=== PATIENT | female | born 1945 ===

== ENCOUNTER 2017-03-27 12:04 | Inpatient (IN) | payer MEDICAID ==
[2017-03-27 12:04] VITALS: BMI 21.3
[2017-03-27] MEDS ORDERED: Sodium Chloride 0.9% 1,000 ML IV STA ×2 (14:18→15:21)
--- NOTE | 2017-03-27 14:29 | ED PDOC ---
HPI: General Adult Time Seen by Provider: 03/27/17 13:15 Chief Complaint (Nursing): Dizziness/Lightheaded Chief Complaint (Provider): Dizziness/Lightheaded History Per: Patient History/Exam Limitations: no limitations Onset/Duration Of Symptoms: Days (x2) Current Symptoms Are (Timing): Still Present Additional Complaint(s): Ruy Mendez is a 72 year old female, with a past medical history of hypertension , diabetes, anxiety and depression, who presents to the emergency department complaining of dizziness onset for 2 days associated with headaches. She states she feels nervous to go home. Patient reports that she ran out of lorazepam a week ago. She denies further medical complaints. PMD: Tristen Campbell Past Medical History Reviewed: Historical Data, Nursing Documentation, Vital Signs Vital Signs: Last Vital Signs Temp 98.5 F 03/27/17 12:18 Pulse 84 03/27/17 12:18 Resp 18 03/27/17 12:18 BP 155/63 H 03/27/17 12:18 Pulse Ox 100 03/27/17 16:41 - Medical History PMH: Anxiety, Depression, Diabetes, HTN - Surgical History Surgical History: Cholecystectomy - Family History Family History: States: Unknown Family Hx - Immunization History Hx Tetanus Toxoid Vaccination: No Hx Influenza Vaccination: No Hx Pneumococcal Vaccination: No - Home Medications Home Medications: Ambulatory Orders Medication Instructions Recorded Acetaminophen [Tylenol 325mg tab] 2 tab PO Q6 #50 tab 03/07/17 Ibuprofen [Motrin Tab] 400 mg PO Q8 #30 tab 03/07/17 metFORMIN [glucOPHAGE] 500 mg PO TID 03/07/17 - Allergies Allergies/Adverse Reactions: Allergies Allergy/AdvReac Type Severity Reaction Status Date / Time No Known Allergies Allergy Verified 03/07/17 12:05 Review of Systems ROS Statement: Except As Marked, All Systems Reviewed And Found Negative Neurological: Positive for: Headache, Dizziness Psych: Positive for: Anxiety Physical Exam - Reviewed Nursing Documentation Reviewed: Yes Vital Signs Reviewed: Yes - Physical Exam Appears: Positive for: Well, Non-toxic, No Acute Distress Head Exam: Positive for: ATRAUMATIC, NORMAL INSPECTION, NORMOCEPHALIC Skin: Positive for: Normal Color, Warm, Dry Eye Exam: Positive for: EOMI, Normal appearance, PERRL ENT: Positive for: Normal ENT Inspection Neck: Positive for: Normal, Painless ROM, Supple Cardiovascular/Chest: Positive for: Regular Rate, Rhythm Respiratory: Positive for: CNT, Normal Breath Sounds Gastrointestinal/Abdominal: Positive for: Normal Exam, Bowel Sounds, Soft Neurologic/Psych: Positive for: Alert, Oriented, Mood/Affect (anxious) - Laboratory Results Result Diagrams: 03/27/17 14:35 03/27/17 14:35 - ECG Interpretation Of ECG: NSR @ 70, no ST-T changes. O2 Sat by Pulse Oximetry: 100 (RA) Pulse Ox Interpretation: Normal Medical Decision Making Medical Decision Making: Initial impression: Hyperglycemia and Anxiety Initial plan: --Head w/o Contrast [CT] --EKG --Comp Metabolic Panel --Troponin I --Urine Dipstick --CBC w/ diff --PTT --Patient --NS IV 1,000 mls/hr --Glucose, Blood, POC --Urinalysis --reevaluation FINDINGS: HEMORRHAGE: No intracranial hemorrhage. BRAIN: No mass effect or edema. Mild diffuse age-appropriate cerebral atrophy. Mild periventricular white matter lucency consistent with chronic microvascular ischemic change. No evidence of acute infarct. VENTRICLES: Unremarkable. No hydrocephalus. CALVARIUM: Unremarkable. PARANASAL SINUSES: Unremarkable as visualized. No significant inflammatory changes. MASTOID AIR CELLS: Unremarkable as visualized. No inflammatory changes. OTHER FINDINGS: None. IMPRESSION: No intracranial mass, hemorrhage or evidence of acute infarct. Age-appropriate involutional changes. Time: 16:30 Medically cleared for psych evaluation Scribe Attestation: Documented by Zain Olguin, acting as a scribe for Tiffany Horton MD. Provider Scribe Attestation: All medical record entries made by the Scribe were at my direction and personally dictated by me. I have reviewed the chart and agree that the record accurately reflects my personal performance of the history, physical exam, medical decision making, and the department course for this patient. I have also personally directed, reviewed, and agree with the discharge instructions and disposition. ED OBSERVATION Time of observation admission: 16:10 - Observation admission statement Patient is being placed in observation because:: Hyperglycemia and headache - Goals of Observation Goals of observation are:: Alleviation of symptoms and result of ED workup Disposition - Clinical Impression Clinical Impression: Anxiety, Hyperglycemia - Patient ED Disposition Is Patient to be Admitted: Yes - Disposition Disposition Time: 17:02 Condition: STABLE Forms: trueEX ([place]) - Pt Status Changed To: Hospital Disposition Of: Inpatient - Admit Certification Admit to Inpatient:: After my assessment, the patient will require hospitalization for at least two midnights. This is because of the severity of symptoms shown, intensity of services needed, and/or the medical risk in this patient being treated as an outpatient. - POA Present On Arrival: Poor Glycemic Control
[2017-03-27 14:37] LABS: BASO % 0.5 % (0.0-2.0); EOS % 0.5 % (0.0-4.0); HEMOGLOBIN 11.5 g/dL (12.0-16.0); MEAN CELL VOLUME 82.4 fl (81.0-99.0); MEAN CORPUSCULAR HEMOGLOBIN 27.2 pg (27.0-31.0); MEAN PLATELET VOLUME 10.5 fl (7.2-11.7); MONO # 0.6 K/uL (0.0-0.8); MONO % 7.7 % (0.0-10.0); NEUT % 52.3 % (50.0-75.0); NRBC % 0.2 % (0.0-0.0); RBC 4.25 Mil/uL (3.80-5.20); WHITE BLOOD COUNT 7.7 K/uL (4.8-10.8)
[2017-03-27 14:50] LABS: ALBUMIN 4.2 g/dL (3.5-5.0); ALT/SGPT 48 U/L (9-52); AST/SGOT 32 U/L (14-36); BLOOD UREA NITROGEN 12 mg/dl (7-17); CALCIUM 9.3 mg/dL (8.4-10.2); GFR AFRICAN-AMERICAN > 60; GFR NON-AFRICAN AMERICAN > 60
[2017-03-27 15:01] LABS: PROTHROMBIN TIME 10.7 Seconds (9.8-13.1)
[2017-03-27] MEDS ORDERED: Insulin Regular 100 units/ml IV STA (15:21)
[2017-03-27 15:51] LABS: SQUAMOUS EPITHIAL < 1 /hpf (0-5); URINE BILIRUBIN NEGATIVE (NEGATIVE); URINE BLOOD NEGATIVE (NEGATIVE); URINE CLARITY CLEAR (Clear); URINE COLOR YELLOW (YELLOW); URINE GLUCOSE (UA) >=500 mg/dL (Normal); URINE LEUKOCYTE ESTERASE NEG Leu/uL (Negative); URINE NITRATE NEGATIVE (NEGATIVE); URINE PROTEIN NEGATIVE (NEGATIVE); URINE UROBILINOGEN 0.2-1.0 mg/dL (0.2-1.0)
--- NOTE | 2017-03-27 16:29 | CT ---
PROCEDURE: CT HEAD WITHOUT CONTRAST. HISTORY: [facility] COMPARISON: None available. TECHNIQUE: Axial computed tomography images were obtained through the head/brain without intravenous contrast. Radiation dose: Total exam DLP = 1552.79 mGy-cm. This CT exam was performed using one or more of the following dose reduction techniques: Automated exposure control, adjustment of the mA and/or kV according to patient size, and/or use of iterative reconstruction technique. FINDINGS: HEMORRHAGE: No intracranial hemorrhage. BRAIN: No mass effect or edema. Mild diffuse age-appropriate cerebral atrophy. Mild periventricular white matter lucency consistent with chronic microvascular ischemic change. No evidence of acute infarct. VENTRICLES: Unremarkable. No hydrocephalus. CALVARIUM: Unremarkable. PARANASAL SINUSES: Unremarkable as visualized. No significant inflammatory changes. MASTOID AIR CELLS: Unremarkable as visualized. No inflammatory changes. OTHER FINDINGS: None. IMPRESSION: No intracranial mass, hemorrhage or evidence of acute infarct. Age-appropriate involutional changes.
--- NOTE | 2017-03-27 17:28 | RAD ---
HISTORY: Medical clearance COMPARISON: 05/22/2016. FINDINGS: LUNGS: No active pulmonary disease. PLEURA: No significant pleural effusion identified, no pneumothorax apparent. CARDIOVASCULAR: No radiographic findings to suggest acute or significant cardiovascular disease. OSSEOUS STRUCTURES: No significant abnormalities. VISUALIZED UPPER ABDOMEN: Normal. OTHER FINDINGS: None. IMPRESSION: No active disease. No significant interval change compared to the prior examination(s).
[2017-03-27 18:57] VITALS: O2SAT 98
[2017-03-27] MEDS ORDERED: Alum-Mag Hydrox-Simethicone Susp (30 mL) PO PRN (23:46)
[2017-03-27] MEDS ORDERED: Bismuth Subsalicylate 262 mg/15 ml Sus (240 ml) PO PRN (23:46)
[2017-03-27] MEDS ORDERED: Magnesium Hydroxide Susp 30 ml UD PO PRN (23:46)
[2017-03-28 08:35] LABS: T4 7.88 ug/dl (5.5-11.0)
[2017-03-28 08:52] LABS: FERRITIN 21.8 ng/mL
[2017-03-28] MEDS: Insulin Regular 100 units/ml SC SCH ×4 (09:02→21:13)
[2017-03-28 12:44] LABS: FOLATE 13.2 ng/mL
--- NOTE | 2017-03-28 13:03 | PCM.PSYCH ---
Initial Psychiatric Evaluation - Initial Psychiatric Evaluation Type of Admission: Voluntary Legal Status: Capacity Chief Complaint (in patient's own words): "I have bad anxiety" Patient's Reaction to Hospitalization: HPI: 72 year old single female, presented to the ED w/ complaints of dizziness and worsening depression and anxiety. She reported falling down two weeks ago and since then she has not been outside. She reported since the fall she has been seeing white lights across her face. She reported no audio or tactile hallucinations. She stated she has ran out of her anxiety medication and has not been able to sleep. She has been feeling anxious and she does not like that feeling. 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 Patient reported that she is gets afraid at times when she watches TV and see violence. Patient was exhibiting some paranoia in the ER as evidenced by her asking, "Why are there cameras everywhere?" or "Why does the nurse keep coming in here?" Patient stated that she is not "crazy". She has never had any therapy or seen a psychiatrist. She stated she never tried to commit suicide or homicide. She denied any ideations, gestures, or plan. Patient was orientated times two she was not aware of the year. Patient was guarded at times as she was paranoid. She was a little unkempt but she stated since her fall she had not been doing much. She had a low level of energy as a result. Patient's speech was normal but at times low when she spoke of being scared. Patient was preoccupied with her anxiety and other times with her fears. Patient stated that she does want to be admitted at this time to get stable. MHx: DM (poorly controlled), HTN SHx: From [facility], denies drug/etoh abuse. Lives alone. ALL: NKDA PPHx: Denies past psychiatric history, reports that her PMD prescribes Ativan 2 mg PO BID (refuses to let filing writer talk to PMD), denies h/o psychiatric admissions. FHx: Denies family h/o mental illness Current Medications: Active Medications Generic Name Dose Route Start Last Admin Trade Name Freq PRN Reason Stop Dose Admin Acetaminophen 650 mg 03/27/17 23:46 03/28/17 00:08 Tylenol 325mg Tab PO 650 mg Q4 PRN Administration Pain, moderate (4-7) Al Hydrox/Mg Hydrox/Simethicone 30 ml 03/27/17 23:46 Maalox Plus 30 Ml PO Q4 PRN Dyspepsia Bismuth Subsalicylate 524 mg 03/27/17 23:46 Pepto-Bismol PO Q4 PRN Diarrhea Enalapril Maleate 5 mg 03/28/17 11:30 03/28/17 12:02 Vasotec PO 5 mg DAILY MANNY Administration Insulin Human Regular 10 units 03/28/17 23:53 Humulin R SC 03/28/17 23:54 ONCE ONE Insulin Human Regular 0 units 03/28/17 07:30 03/28/17 11:38 Humulin R SC Not Given ACHS MANNY Protocol Lorazepam 0.5 mg 03/27/17 23:46 Ativan PO 04/10/17 23:47 HS PRN Insomnia Lorazepam 0.5 mg 03/27/17 23:46 03/28/17 12:14 Ativan PO 04/10/17 23:47 0.5 mg Q6 PRN Administration Anixety/Agitation Magnesium Hydroxide 30 ml 03/27/17 23:46 Milk Of Magnesia PO HS PRN Constipation Metformin HCl 850 mg 03/28/17 11:42 03/28/17 12:01 Glucophage PO 850 mg BID MANNY Administration Past Psychiatric History - Past Psychiatric History Previous Treatment History: None Pertinent Medical Hx (Current Medical&Sleep Prob, Allergies): Allergies Allergy/AdvReac Type Severity Reaction Status Date / Time No Known Allergies Allergy Verified 03/07/17 12:05 metFORMIN [glucOPHAGE] 500 mg PO TID 03/07/17 Empagliflozin [Jardiance] 25 mg PO DAILY 03/27/17 Enalapril Maleate [Vasotec] 5 mg PO DAILY 03/27/17 Glimepiride [amaRYL] 4 mg PO DAILY 03/27/17 LORazepam [Ativan] 2 mg PO BID 03/27/17 Omeprazole [Omeprazole] 20 mg PO DAILY 03/27/17 Pioglitazone [Actos] 15 mg PO DAILY 03/27/17 Sertraline [Zoloft] 25 mg PO DAILY 03/27/17 Review of Systems - Psychiatric Psychiatric: As Per HPI, Anhedonia, Anxiety, Depression, Difficulty Concentrating, Panic Attacks, Paranoia Mental Status Examination - Personal Presentation Personal Presentation: Looks stated age - Affect Affect: Constricted - Motor Activity Motor Activity: Calm - Reliability in Providing Information Reliability in Providing Information: Other (Poor for unclear reasons) - Speech Speech: Organized - Mood Mood: Depressed, Anxious - Formal Thought Process Formal Thought Process: Paranoia - Obsessions/Compulsions Obsessions: No Compulsions: No - Cognitive Functions Orientation: Person, Place, Situation, Time Sensorium: Alert Estimate of Intelligence: Average Judgement: Intact, as evidence by: Insight regarding need for hospitalization Memory: Recent intact, as evidence by: Ability to recall events of the day - Risk Risk: Diminished functioning - Strength & Assets Inventory Strength & Assets Inventory: Family support, Cooperative DSM 5 DX - DSM 5 DSM 5 Diagnosis: Generalized Anxiety Disorder, Mood Disorder unspecified, r/o Psychosis unspecified - Recommended/Plan of Treatment Treatment Recommendations and Plan of Treatment: Generalized Anxiety Disorder, Mood Disorder unspecified, r/o Psychosis unspecified -Admit to psychiatry -Start Zoloft 50 mg PO Daily -Ativan 0.5 mg PO Q6 hr PRN anxiety or benzo w/drawal -Risperdal 0.5 mg PO HS -Psychology consult: r/o dementia -Disposition planning -Individual and group therapy Projected ELOS: 3-7 days Discharge Plan and Discharge Criteria: Discharge when psychiatrically stable - Smoking Cessation Smoking Cessation Initiated: No
--- NOTE | 2017-03-28 15:22 | CP.PCM.CON ---
History of Present Illness - History of Present Illness History of Present Illness: 72 yo female with history of DM2, HTN and Depression admitted in [facility] because of increasing Depression and Anxiety. Review of Systems - Review of Systems All systems: reviewed and no additional remarkable complaints except (aside from those mentioned above, 12 point system review were negative by me) Past Patient History - Tetanus Immunizations Tetanus Immunization: Unknown - Past Medical History & Family History Past Medical History?: Yes Past Family History: Reviewed and not pertinent - Past Social History Smoking Status: Never Smoked Alcohol: None Drugs: Denies - CARDIAC Hx Cardiac Disorders: No Hx Hypertension: Yes - PULMONARY Hx Respiratory Disorders: No Hx Tuberculosis: No - NEUROLOGICAL HX Cerebrovascular Accident: No Hx Seizures: No - HEENT Hx HEENT Problems: No - RENAL Hx Chronic Kidney Disease: No - ENDOCRINE/METABOLIC Hx Diabetes Mellitus Type 2: Yes - HEMATOLOGICAL/ONCOLOGICAL Hx Cancer: No Hx Human Immunodeficiency Virus (HIV): No - INTEGUMENTARY Hx Dermatological Problems: No - MUSCULOSKELETAL/RHEUMATOLOGICAL Hx Falls: Yes - GASTROINTESTINAL Hx Gastrointestinal Disorders: No - GENITOURINARY/GYNECOLOGICAL Hx Sexually Transmitted Disorders: No - PSYCHIATRIC Hx Anxiety: Yes Hx Substance Use: No - SURGICAL HISTORY Hx Cholecystectomy: Yes - ANESTHESIA Hx Anesthesia: Yes Hx Anesthesia Reactions: No Meds Allergies/Adverse Reactions: Allergies Allergy/AdvReac Type Severity Reaction Status Date / Time No Known Allergies Allergy Verified 03/07/17 12:05 - Medications Medications: Current Medications Acetaminophen (Tylenol 325mg Tab) 650 mg PO Q4 PRN PRN Reason: Pain, moderate (4-7) Last Admin: 03/28/17 00:08 Dose: 650 mg Al Hydrox/Mg Hydrox/Simethicone (Maalox Plus 30 Ml) 30 ml PO Q4 PRN PRN Reason: Dyspepsia Bismuth Subsalicylate (Pepto-Bismol) 524 mg PO Q4 PRN PRN Reason: Diarrhea Enalapril Maleate (Vasotec) 5 mg PO DAILY [facility] Last Admin: 03/28/17 12:02 Dose: 5 mg Insulin Human Regular (Humulin R) 10 units SC ONCE ONE Stop: 03/28/17 23:54 Insulin Human Regular (Humulin R) 0 units SC ACHS MANNY PRN Reason: Protocol Last Admin: 03/28/17 11:38 Dose: Not Given Lorazepam (Ativan) 0.5 mg PO HS PRN PRN Reason: Insomnia Stop: 04/10/17 23:47 Lorazepam (Ativan) 0.5 mg PO Q6 PRN PRN Reason: Anixety/Agitation Stop: 04/10/17 23:47 Last Admin: 03/28/17 12:14 Dose: 0.5 mg Magnesium Hydroxide (Milk Of Magnesia) 30 ml PO HS PRN PRN Reason: Constipation Metformin HCl (Glucophage) 850 mg PO BID MANNY Last Admin: 03/28/17 12:01 Dose: 850 mg Risperidone (Risperdal Tab) 0.5 mg PO HS MANNY Sertraline HCl (Zoloft) 50 mg PO DAILY [facility] Physical Exam - Constitutional Appears: No Acute Distress - Head Exam Head Exam: ATRAUMATIC - Eye Exam Eye Exam: absent: Scleral icterus - ENT Exam ENT Exam: Mucous Membranes Moist - Neck Exam Neck exam: Negative for: Meningismus - Respiratory Exam Respiratory Exam: absent: Rhonchi, Wheezes, Respiratory Distress - Cardiovascular Exam Cardiovascular Exam: REGULAR RHYTHM, +S1, +S2 - GI/Abdominal Exam GI & Abdominal Exam: Soft. absent: Tenderness - Rectal Exam Rectal Exam: Deferred - Extremities Exam Extremities exam: Negative for: pedal edema - Back Exam Back exam: NORMAL INSPECTION - Neurological Exam Neurological exam: Alert, Oriented x3 - Psychiatric Exam Psychiatric exam: Normal Affect - Skin Skin Exam: Dry, Intact Results - Vital Signs Recent Vital Signs: Last Vital Signs Temp 98 F 03/27/17 18:56 Pulse 79 03/27/17 18:56 Resp 20 03/28/17 00:00 BP 142/68 03/27/17 18:56 Pulse Ox 98 03/27/17 18:56 - Labs Result Diagrams: 03/27/17 14:35 03/27/17 14:35 Labs: Laboratory Results - last 24 hr 03/27/17 03/27/17 03/27/17 17:03 22:01 23:47 POC Glucose (mg/dL) 118 H 371 H 418 H* Hemoglobin A1c Ferritin Triglycerides Cholesterol LDL Cholesterol Direct HDL Cholesterol Vitamin B12 Folate Free T4 Thyroxine (T4) TSH 3rd Generation 03/28/17 03/28/17 03/28/17 05:39 07:00 07:00 POC Glucose (mg/dL) 279 H Hemoglobin A1c 14.5 H Ferritin 21.8 Triglycerides 70 Cholesterol 162 LDL Cholesterol Direct 63 HDL Cholesterol 71 H Vitamin B12 617 Folate 13.2 Free T4 Thyroxine (T4) 7.88 TSH 3rd Generation 6.11 H 03/28/17 03/28/17 07:00 11:13 POC Glucose (mg/dL) 416 H* Hemoglobin A1c Ferritin Triglycerides Cholesterol LDL Cholesterol Direct HDL Cholesterol Vitamin B12 Folate Free T4 1.00 Thyroxine (T4) TSH 3rd Generation Assessment & Plan (1) Anxiety Status: Acute Comment: psyche is managing (2) DM2 (diabetes mellitus, type 2) Status: Chronic Comment: diabetic diet. Metformin 850mg PO BID. HgA1C, BMP in am. accuchek ACHS with low Lipsro coverage (3) HTN (hypertension) Status: Chronic Comment: BP stable. Vasotec 5mg PO daily
[2017-03-28] MEDS: Insulin Lispro (humaLOG) 100 Units/ml Inj SC SCH ×2 (16:30→21:13)
--- NOTE | 2017-03-28 18:00 | CARD ---
APPROVED REPORT EKG Measurement Heart [id number] <Conclusion> Poor data quality, interpretation may be adversely affected Normal sinus rhythm Normal ECG
[2017-03-28] MEDS ORDERED: Insulin Regular 100 units/ml SC ONE (23:53)
[2017-03-29 07:21] LABS: BLOOD UREA NITROGEN 20 mg/dl (7-17); CALCIUM 9.1 mg/dL (8.4-10.2); GFR AFRICAN-AMERICAN > 60; GFR NON-AFRICAN AMERICAN > 60
[2017-03-29] MEDS: Insulin Lispro (humaLOG) 100 Units/ml Inj SC SCH ×4 (08:22→21:25)
--- NOTE | 2017-03-29 13:20 | PCM.PYCHPN ---
Psychiatric Progress Note - Psychiatric Progress Note Patient seen today, length of contact: Patient evaluated, case discussed with team, chart reviewed, 35 min Patient Chief Complaint: "I'm okay" Problems Identified/Issues Discussed: Patient is requesting to be discharged from the hospital. She reported that her primary compliant today is anxiety. Psychoeducation provided to the patient and the patient's son that the patient has very poorly controlled diabetes the risks associated with not taking the appropriate medications to control her diabetes and the penitentiary consequences. Gas Leak Inspector also informed the patient and her son that is can be dangerous for a woman her age to take Ativan 2 mg PO BID due to increased risks of falls and confusion. Gas Leak Inspector discussed although the patient has been on this medication for several years, hand sign writer recommends lowering the dosage and eventually stopping this medication. 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 Risperdal stopped as the patient has not be expressing paranoid ideation and her primary issue seems to be depression/anxiety. Medication Change: Yes (Stop Risperdal) Medical Record Reviewed: Yes Mental Status Examination - Cognitive Function Orientation: Person, Place, Situation, Time Association: WNL - Mood Mood: Anxious - Affect Affect: Constricted - Formal Thought Process Formal Thought Process: No Impairment Psychotic Thoughts and Behaviors: NO AH/VH/paranoia/delusions - Suicidal Ideation Suicidal Ideation: No - Homicidal Ideation Homicidal Ideation: No Goal/Treatment Plan - Goal/Treatment Plan Need for Continued Stay: Remain at risks for inpatient hospitalization, Severe depression anxiety Progress Toward Problem(s) and Goals/Treatment Plan: Generalized Anxiety Disorder, Mood Disorder unspecified, r/o Psychosis unspecified -Continue Zoloft 50 mg PO Daily -Ativan 0.5 mg PO Q12 hr PRN anxiety or benzo w/drawal -Stop Risperdal 0.5 mg PO HS -Psychology consult: r/o dementia -Disposition planning- patient and her son are in agreement with discharge tomorrow -Individual and group therapy -R/b/se of treatment discussed with patient and her son; psychoeducation provided on diabetes Estimated Date of D/C: 03/30/17
[2017-03-30 06:03] VITALS: BP 141/77; PULSE 89; RESP 18; TEMP 97.5
[2017-03-30] MEDS: Insulin Lispro (humaLOG) 100 Units/ml Inj SC SCH ×2 (09:02→12:24)
--- NOTE | 2017-03-30 10:03 | PCM.PYCHDC ---
Mental Status Examination - Mental Status Examination Orientation: Person, Place, Situation Memory: Impaired Mood: Neutral Affect: Broad Speech: Appropriate Attention: Poor Concentration: Poor Association: Loose Fund of Knowledge: Poor Formal Thought Process: Loosening of associations Description of patient's judgement and insight: Limited insight/judgment due to cognitive impairments Psychotic Thoughts and Behaviors: NO AH/VH/paranoia/delusions Suicidal Ideation: No Current Homicidal Ideation?: No Discharge Summary - Discharge Note Reason for Hospitalization: HPI: 72 year old single female, presented to the ED w/ complaints of dizziness and worsening depression and anxiety. She reported falling down two weeks ago and since then she has not been outside. She reported since the fall she has been seeing white lights across her face. She reported no audio or tactile hallucinations. She stated she has ran out of her anxiety medication and has not been able to sleep. She has been feeling anxious and she does not like that feeling. 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 Patient reported that she is gets afraid at times when she watches TV and see violence. Patient was exhibiting some paranoia in the ER as evidenced by her asking, "Why are there cameras everywhere?" or "Why does the nurse keep coming in here?" Patient stated that she is not "crazy". She has never had any therapy or seen a psychiatrist. She stated she never tried to commit suicide or homicide. She denied any ideations, gestures, or plan. Patient was orientated times two she was not aware of the year. Patient was guarded at times as she was paranoid. She was a little unkempt but she stated since her fall she had not been doing much. She had a low level of energy as a result. Patient's speech was normal but at times low when she spoke of being scared. Patient was preoccupied with her anxiety and other times with her fears. Patient stated that she does want to be admitted at this time to get stable. MHx: DM (poorly controlled), HTN SHx: From [facility], denies drug/etoh abuse. Lives alone. ALL: NKDA PPHx: Denies past psychiatric history, reports that her PMD prescribes Ativan 2 mg PO BID (refuses to let underwriter mortgage loan talk to PMD), denies h/o psychiatric admissions. x: Denies family h/o mental illness Laboratory Data: Abnormal Lab Results 03/29/17 03/29/17 03/29/17 06:25 10:48 12:31 POC Glucose (mg/dL) 323 H 240 H Hemoglobin A1c 14.4 H 03/29/17 03/29/17 03/30/17 16:00 21:10 05:45 POC Glucose (mg/dL) 309 H 111 H 267 H Hemoglobin A1c Consultations:: List each consultation separately and include: 1. Reason for request. 2. Findings. 3. Follow-up Consultations: Medicine consult Psychology consult: Pt is a 72 year old female admitted to the geropsych unit and referred to the underwriter mortgage loan for evaluation. On the DRS, pt scored in the Deficient Rang on all tasks. pt scored in the Deficient Range on Attention, Construction , Conceptualization, memory and Initiation tasks. Overall 82 Initiation 22 Attention 22 Construction 2 Conceptaulization 24 memory 10 Summary of Hospital Course include:: 1. Description of specific treatment plan utilized for patients during their course of treatmen. 2. Summarize the time- course for resolution of acute symptoms and/or regressed behaviors. 3. Describe issues identified and worked on during hospitalization. 4. Describe medication utilized. 5. Describe medical problems identified and treated. 6. Reassessment of suicide risk Summary of Hospital Course: Patient admitted to the hospital. She was tapered down to Ativan 0.5 mg PO Q12 PRN anxiety. She was started on Zoloft 50 mg PO Daily. Her diabetes medications were adjusted appropriately. Psychology testing showed the patient has cognitive deficits/ dementia. Industrial Health Engineer discussed the findings with the patient's son and let him know that his mother needs additional monitoring, care and supervision for dispensing medications. Risks of chronic benzodiazepine use were also discussed. - Final Diagnosis (DSM 5) Condition upon Discharge: STABLE DSM 5: Major Depressive Disorder, Generalized Anxiety Disorder, Dementia Disposition: HOME/ ROUTINE Follow-up Treatment Plan: Generalized Anxiety Disorder, Mood Disorder unspecified, Dementia -Continue Zoloft 50 mg PO Daily -Ativan 0.5 mg PO Q12 hr PRN anxiety or benzo w/drawal -Diabetes medications provided by medical transcription editor -Psychology consult appreciated, patient w/ significant cognitive deficits -Individual and group therapy -R/b/se of treatment discussed with patient and her son; psychoeducation provided on diabetes and dementia Prescriptions/Medication Reconciliation: Enalapril Maleate [Vasotec] 5 mg PO DAILY #30 LORazepam [Ativan] 0.5 mg PO Q12 PRN #30 tab PRN Reason: Anxiety Sertraline [Zoloft] 50 mg PO DAILY #30 tab - Smoking Cessation Smoking Cessation Medication prescribed: No Reason for not providing: Not indicated - Antipsychotic Medications Pt discharged on 2 or more routine antipsychotic medications: No
--- NOTE | 2017-03-30 11:07 | CP.PCM.CON ---
History of Present Illness - History of Present Illness History of Present Illness: Pt is a 72 year old female admitted to the geropsych unit and referred to the telegraphic typewriter operator for evaluation. On the DRS, pt scored in the Deficient Rang on all tasks. pt scored in the Deficient Range on Attention, Construction , Conceptualization, memory and Initiation tasks. Overall 82 Initiation 22 Attention 22 Construction 2 Conceptaulization 24 memory 10 Past Patient History - Tetanus Immunizations Tetanus Immunization: Unknown - Past Medical History & Family History Past Medical History?: Yes Past Family History: Reviewed and not pertinent - Past Social History Smoking Status: Never Smoked Alcohol: None Drugs: Denies - CARDIAC Hx Cardiac Disorders: No Hx Hypertension: Yes - PULMONARY Hx Respiratory Disorders: No Hx Tuberculosis: No - NEUROLOGICAL HX Cerebrovascular Accident: No Hx Seizures: No - HEENT Hx HEENT Problems: No - RENAL Hx Chronic Kidney Disease: No - ENDOCRINE/METABOLIC Hx Diabetes Mellitus Type 2: Yes - HEMATOLOGICAL/ONCOLOGICAL Hx Cancer: No Hx Human Immunodeficiency Virus (HIV): No - INTEGUMENTARY Hx Dermatological Problems: No - MUSCULOSKELETAL/RHEUMATOLOGICAL Hx Falls: Yes - GASTROINTESTINAL Hx Gastrointestinal Disorders: No - GENITOURINARY/GYNECOLOGICAL Hx Sexually Transmitted Disorders: No - PSYCHIATRIC Hx Anxiety: Yes Hx Substance Use: No - SURGICAL HISTORY Hx Cholecystectomy: Yes - ANESTHESIA Hx Anesthesia: Yes Hx Anesthesia Reactions: No Meds Home Medications: Home Medication List Medication Instructions Recorded Confirmed Type Enalapril Maleate [Vasotec] 5 mg PO DAILY #30 03/30/17 Rx LORazepam [Ativan] 0.5 mg PO Q12 PRN #30 tab 03/30/17 Rx Sertraline [Zoloft] 50 mg PO DAILY #30 tab 03/30/17 Rx Allergies/Adverse Reactions: Allergies Allergy/AdvReac Type Severity Reaction Status Date / Time No Known Allergies Allergy Verified 03/07/17 12:05 - Medications Medications: Current Medications Enalapril Maleate (Vasotec) 5 mg PO DAILY [facility] Last Admin: 03/30/17 09:07 Dose: 5 mg Insulin Human Lispro (Humalog) 0 units SC ACHS [facility] PRN Reason: Protocol Last Admin: 03/30/17 09:02 Dose: Not Given Lorazepam (Ativan) 0.5 mg PO Q12 PRN PRN Reason: Anxiety Metformin HCl (Glucophage) 850 mg PO BID [facility] Last Admin: 03/30/17 09:06 Dose: 850 mg Sertraline HCl (Zoloft) 50 mg PO DAILY [facility] Last Admin: 03/30/17 09:07 Dose: 50 mg Results - Vital Signs Recent Vital Signs: Last Vital Signs Temp 97.5 F L 03/30/17 06:00 Pulse 89 03/30/17 06:00 Resp 18 03/30/17 06:00 BP 141/77 03/30/17 06:00 Pulse Ox 98 03/27/17 18:56 - Labs Result Diagrams: 03/27/17 14:35 03/29/17 06:25 Labs: Laboratory Results - last 24 hr 03/29/17 03/29/17 03/29/17 06:25 10:48 12:31 POC Glucose (mg/dL) 323 H 240 H Hemoglobin A1c 14.4 H 03/29/17 03/29/17 03/30/17 16:00 21:10 05:45 POC Glucose (mg/dL) 309 H 111 H 267 H Hemoglobin A1c
--- NOTE | 2017-03-30 16:10 | CP.PCM.PN ---
Subjective - Date & Time of Evaluation Date of Evaluation: 03/30/17 Time of Evaluation: 16:09 - Subjective Subjective: pt for discharge today stable for dc from medical standpoint Temp Pulse Resp BP Pulse Ox 97.5 F L 89 18 141/77 98 03/30/17 06:00 03/30/17 06:00 03/30/17 06:00 03/30/17 06:00 03/27/17 18:56 Vital signs as documented. Gen: WDWN, cooperative HEENT: NCAT, PERRL, EOMI, Neck: Soft, supple, no lymphadenopathy, no JVD Heart: +S1S2, RRR, No MRG Lung: CTAB, No WRR Abd: soft, NT, ND, BSx4, no HSM, no masses Ext: warm, well perfused, pedal pulses intact Skin: Warm, Dry, no rash 03/27/17 14:35 03/29/17 06:25 Assessment and Plan DM HTN pt for dc stable from medical standpoint continue antihypertensives restarted all home oral DM meds, metformin, actos, amaryl, jardiance. to follow up with PCP on discharge. Objective - Vital Signs/Intake and Output Vital Signs (last 24 hours): Temp Pulse Resp BP Pulse Ox 97.5 F L 89 18 141/77 98 03/30/17 06:00 03/30/17 06:00 03/30/17 06:00 03/30/17 06:00 03/27/17 18:56 - Medications Medications: Current Medications Enalapril Maleate (Vasotec) 5 mg PO DAILY [facility] Last Admin: 03/30/17 09:07 Dose: 5 mg Insulin Human Lispro (Humalog) 0 units SC ACHS [facility] PRN Reason: Protocol Last Admin: 03/30/17 12:24 Dose: Not Given Lorazepam (Ativan) 0.5 mg PO Q12 PRN PRN Reason: Anxiety Metformin HCl (Glucophage) 850 mg PO BID [facility] Last Admin: 03/30/17 09:06 Dose: 850 mg Sertraline HCl (Zoloft) 50 mg PO DAILY [facility] Last Admin: 03/30/17 09:07 Dose: 50 mg - Labs Labs: 03/29/17 06:25 PT 10.7 Seconds (9.8-13.1) 03/27/17 14:35 INR 1.0 (0.9-1.2) 03/27/17 14:35 APTT 30.0 Seconds (25.6-37.1) 03/27/17 14:35
== END 2017-03-30 14:30 | disposition home or self-care (01) | DRG 426 ==
LOC: H.ER 12:04 → H.ERHOLD 17:01 → H.STEP 21:00
PROVIDERS: ADMIT Psychiatry & Neurology Psychiatry; ATTEND Psychiatry & Neurology Psychiatry
PROC: GZHZZZZ Group Psychotherapy (ICD-10-PCS; principal; 2017-03-27)
PROC: GZ58ZZZ Individual Psychotherapy, Cognitive-Behavioral (ICD-10-PCS; 2017-03-27)
DX: F32.9 Major depressive disorder, single episode, unspecified (principal); F41.1 Generalized anxiety disorder; E11.65 Type 2 diabetes mellitus with hyperglycemia; F03.90 Unspecified dementia, unspecified severity, without behavioral disturbance, psychotic disturbance, mood disturbance, and anxiety; I10 Essential (primary) hypertension; Z90.49 Acquired absence of other specified parts of digestive tract